=== PATIENT | female | born 1995 | race Native Hawaiian/Other Pacific Islander ===

== ENCOUNTER 2020-11-06 07:30 | Emergency (ER) | payer OTHER | END 2020-11-06 08:46 | disposition home or self-care (01) | LOC: ED 07:30 | DX: K04.7 Periapical abscess without sinus (principal); K05.319 Chronic periodontitis, localized, unspecified severity | CPT/HCPCS: 99282 ==

== ENCOUNTER 2020-12-23 08:01 | Emergency (ER) | payer OTHER ==
[~2020-12-23] VITALS: Ht 170.2 cm; Wt 61.0 kg
[2020-12-23 08:15] VITALS: TEMP 97.5
[2020-12-23 09:41] VITALS: BP 130/70
== END 2020-12-23 09:50 | disposition home or self-care (01) ==
LOC: ED 08:01
DX: K08.89 Other specified disorders of teeth and supporting structures (principal)
CPT/HCPCS: 96372; 99283; J0696; J1885

== ENCOUNTER 2021-04-30 16:39 | Emergency (ER) | payer OTHER ==
[~2021-04-30] VITALS: Ht 170.2 cm; Wt 60.8 kg
[2021-04-30 17:37] LABS: PLATELET COUNT 269 K/uL (152-353)
[2021-04-30 18:01] LABS: PARTIAL THROMBOPLASTIN TIME 35.3 SECONDS (24.5-33.6)
[2021-04-30 18:26] LABS: POTASSIUM 3.2 mmol/L (3.6-5.2); SODIUM 139 mmol/L (136-145)
[2021-04-30 19:31] VITALS: BP 120/78; TEMP 98
== END 2021-04-30 19:31 | disposition home or self-care (01) ==
LOC: ED 16:39
PROVIDERS: Hospitalist
DX: K52.89 Other specified noninfective gastroenteritis and colitis (principal); R11.2 Nausea with vomiting, unspecified; R19.7 Diarrhea, unspecified
CPT/HCPCS: 36415; 80053; 80320; 81000; 81025; 82550; 83880; 84484; 85027; 85610; 85730; 93005; 96360; 96375; 99284; J2405

== ENCOUNTER 2021-07-08 18:30 | Emergency (ER) | payer OTHER ==
[~2021-07-08] VITALS: Ht 162.6 cm; Wt 79.4 kg
[2021-07-08 19:10] LABS: PLATELET COUNT 225 K/uL (152-353)
[2021-07-08 19:18] LABS: POTASSIUM 3.6 mmol/L (3.6-5.2); SODIUM 140 mmol/L (136-145)
[2021-07-08 19:23] LABS: PARTIAL THROMBOPLASTIN TIME 32.4 SECONDS (24.5-33.6)
[2021-07-08 19:47] VITALS: BP 104/62; TEMP 98.1
== END 2021-07-08 19:47 | disposition home or self-care (01) ==
LOC: ED 18:30
PROVIDERS: Hospitalist
DX: R07.89 Other chest pain (principal); F45.8 Other somatoform disorders
CPT/HCPCS: 36415; 80053; 80320; 82550; 83880; 84484; 85027; 85379; 85610; 85730; 93005; 96372; 99283; J2405

== ENCOUNTER 2022-02-16 11:08 | Emergency (ER) | payer OTHER ==
[~2022-02-16] VITALS: Ht 162.6 cm; Wt 61.7 kg
[2022-02-16 11:10] VITALS: BP 125/80; TEMP 98.3
== END 2022-02-16 11:54 | disposition home or self-care (01) ==
LOC: ED 11:08
DX: H65.191 Other acute nonsuppurative otitis media, right ear (principal); H61.23 Impacted cerumen, bilateral
CPT/HCPCS: 99281

== ENCOUNTER 2022-05-05 15:40 | Emergency (ER) | payer OTHER ==
[~2022-05-05] VITALS: Ht 162.6 cm; Wt 61.7 kg
[2022-05-05 15:45] VITALS: BP 128/71; TEMP 98.3
== END 2022-05-05 17:30 | disposition home or self-care (01) ==
LOC: ED 15:40
PROC: 2W3KX1Z Immobilization of Left Finger using Splint (ICD-10-PCS; principal; 2022-05-05)
DX: S62.657A Nondisplaced fracture of middle phalanx of left little finger, initial encounter for closed fracture (principal); W22.8XXA Striking against or struck by other objects, initial encounter; Y92.89 Other specified places as the place of occurrence of the external cause
CPT/HCPCS: 81025; 99283